=== PATIENT | male | born 1950 | race Caucasian/White ===

== ENCOUNTER 2018-03-14 13:57 | Day surgery (SDC) | payer MEDICARE ==
[~2018-03-14] VITALS: Ht 177.8 cm; Wt 63.1 kg
[2018-03-14] MEDS ORDERED: IBU400 MG PO (14:28)
[2018-03-14 14:29] VITALS: BP 154/102; PULSE 83; TEMP 97.8
== END 2018-03-14 15:17 | disposition home or self-care (01) ==
LOC: SDCO 13:57
DX: N43.0 Encysted hydrocele (principal); N50.811 Right testicular pain; K21.9 Gastro-esophageal reflux disease without esophagitis; Z88.6 Allergy status to analgesic agent; F17.210 Nicotine dependence, cigarettes, uncomplicated; G89.29 Other chronic pain; Z53.8 Procedure and treatment not carried out for other reasons

== ENCOUNTER 2020-11-22 06:33 | Day surgery (SDC) | payer MEDICARE ==
[~2020-11-22] VITALS: Ht 177.8 cm; Wt 50.4 kg
[~2020-11-22 06:33] MED LIST: IBU400 MG PO
[2020-11-22 07:21] VITALS: BP 151/90; PULSE 70; TEMP 97.2
[2020-11-22 07:22] LABS: ALBUMIN 3.8 gm/dL (3.5-5.0); CALCIUM 9.3 mg/dL (8.4-10.2); CREATININE, serum 0.57 (0.66-1.25); POTASSIUM 3.6 mmol/L (3.4-5.0)
[2020-11-22 09:01] VITALS: BP 123/62; PULSE 66; TEMP 98.6
--- NOTE | 2020-11-22 09:01 | NUR ---
TO RM 8 PER CART FROM OR. SLEEPING, OPENS EYES WITH VERBAL STIMULATION AND FALLS BACK TO SLEEP. 02 AT 10L OXI MASK. SATS HARD TO GET DUE TO COLD FINGERS. SAT READING 95%.
[2020-11-22 09:15] VITALS: BP 130/66; PULSE 53
--- NOTE | 2020-11-22 09:15 | NUR ---
CONTINUES TO SLEEP QUIETLY. DIETARY IS HERE TALKING TO BROHTER ABOUT DIETARY NEEDS. BROTHER STATED HE HAS HAD A PEG TUBE BEFORE AND UNDERSTANDS. OCCASIONAL COUGH AND CLEARS PHLEM.
[2020-11-22] MEDS ORDERED: PERCOCET 325 MG1 TA2 PO (09:20)
[2020-11-22 09:30] VITALS: BP 153/89; PULSE 64
--- NOTE | 2020-11-22 09:30 | NUR ---
MORE AWAKE, BUT STARY EYED. RECEIVED WATER AND TAKING SIPS. COUGHS WITH EACH SIP.
[2020-11-22 09:45] VITALS: BP 146/891; PULSE 62
--- NOTE | 2020-11-22 09:45 | NUR ---
PEG TUBE INPLACE WITH DRESSING OVER SITE. NO DRAINAGE NOTED. DENIES PAIN OR DISCOMFORT AT THIS TIME. DIETARY TALKING WITH PATIENT AND BROTHER ABOUT DIETARY NEEDS. ATTRACTION WORKER HERE TALKING TO PATIENT AND BROTHER ABOUT HOME HEALTH NEEDS.
--- NOTE | 2020-11-22 10:00 | NUR ---
DEMONSTRATED TO PATIENT AND BROTHER HOW TO USE FEEDING TUBE KEEP CLEAN. RECEIVED MED CUPS, CUPS, GRADUATE CANISTER.
--- NOTE | 2020-11-22 10:30 | NUR ---
FINANCIAL AID ADVISOR REVIEWED DPOA WITH BROTHER. PATIENT VERBALIZED UNDERSTANDING. RECEIVED DISCHARGE INSTRUCTIONS AND VERBALIZED UNDERSTANDING. DISCONTINUED IV AND INT. PATIENT GETTING DRESSED
--- NOTE | 2020-11-22 10:40 | NUR ---
DISCHARGED PER WC BY NURSING STAFF TO PRIVATE CAR IN CARE OF BROTHER. APPOINTMENT MADE TODAY FOR DR LYONS TO ASSESS FOR HOME HEALTH CARE NEEDS.
--- NOTE | 2020-11-22 10:55 | NUR ---
emu farm worker met with patient and his brother, Saeid Jones #[phone] as patient is having a PEG tube placed today. Worker provided Medicare compare sheet with home health options, as patient lives alone, and brother will be traveling back and forth from [place] to patient's home. Brother, Saeid, chose [facility] and worker gave a referral and faxed clinical documents. Patient stated that Dr Meng is his primary care provider, in [place]. An appointment was made for today at 1:[address] Rodriguez to ensure that home health orders can be obtained as patient has not seen his physician since 2019. Worker contacted Ave with Dr Rodriguez and advised of the above information. Worker provided patient and his brother with written and verbal education on durable power of unmanned equipment operator for health care and assisted patient in completing the document. Worker faxed a copy to Dr Meng's office as well as [facility]. Worker provided original document and copies to patient's brother. Brother chose [facility] for tube feedings and worker advised of same ownership. Worker gave a referral to [facility] and faxed orders/clinical documentation. Brother and patient will stop by and lease picker feedings on their way home. Patient and Saeid verbalized understanding of all of the above information on his plan of care. Patient plans to discharge home this date.
--- NOTE | 2020-11-22 11:00 | NUR ---
DISCHARGED PER BY NURSING STAF TO PRIVATE CAR IN CARE OF BROTHER CHAITANYA.
--- NOTE | 2020-11-22 14:09 | NUR ---
Patient's brother called this school social worker and advised that patient fell while getting out of the truck when they got home and refused to see the primary care office appointment at 1:45 today. Brother will attempt to get patient to another appointment on Sunday. Brother verbalizes understanding that home health cannot be ordered until patient is seen in the primary care provider office. Worker contacted Sherry at [facility] and advised of the above information.
--- NOTE | 2020-11-26 13:28 | NUR ---
Sherry with [facility] states they were able to obtain physician orders, however, brother called and states that patient will take Speech therapy as an out patient and no further in home visits are wanted. Brother advised that [facility] was approved and he was encouraged to reach out to [facility] business case analyst for further services if needed.
== END 2020-11-22 11:34 | disposition home or self-care (01) ==
LOC: SDCO 06:33
PROVIDERS: Surgery
DX: C10.9 Malignant neoplasm of oropharynx, unspecified (principal); C83.15 Mantle cell lymphoma, lymph nodes of inguinal region and lower limb; E46 Unspecified protein-calorie malnutrition; J44.9 Chronic obstructive pulmonary disease, unspecified; I10 Essential (primary) hypertension; Z87.891 Personal history of nicotine dependence; M19.90 Unspecified osteoarthritis, unspecified site; K21.9 Gastro-esophageal reflux disease without esophagitis; G89.29 Other chronic pain
CPT/HCPCS: J0690; J2405; J2704; J3010; J7120